=== PATIENT | male | born 1955 | race Hispanic/Latino ===

== ENCOUNTER 2020-09-30 06:53 | Observation (INO) | payer OTHER ==
[~2020-09-30] VITALS: Ht 170.2 cm; Wt 119.4 kg
[2020-09-30] MEDS ORDERED: LOSA100T58 PO (08:26)
[2020-09-30] MEDS ORDERED: AMLO-257 PO (08:26)
[2020-09-30 08:36] LABS: BASOPHILS % (AUTO) 0.9 % (0.0-5.0); EOSINOPHILS % (AUTO) 1.1 % (0.0-8.0); HEMATOCRIT 48.7 % (42-54); LYMPHOCYTES % (AUTO) 24.5 % (21.0-51.0); MEAN CORPUSCULAR HEMOGLOBIN 24.4 pg (27.0-33.0); MEAN CORPUSCULAR VOLUME 78.8 fL (79-99); MONOCYTES % (AUTO) 8.7 % (3.0-13.0); NEUTROPHILS % (AUTO) 64.2 % (40.0-77.0); PLATELET COUNT (AUTO) 301 K/uL (130-400); RED BLOOD CELL COUNT(AUTO) 6.18 MIL/uL (4.50-6.20); RED CELL DISTRIBUTION WIDTH 15.1 % (11.0-15.5); WHITE BLOOD COUNT (AUTO) 15.9 K/uL (4.8-10.8)
[2020-09-30 08:51] LABS: ALBUMIN 3.4 g/dL (3.5-5.0); BILIRUBIN,TOTAL 0.6 mg/dL (0.2-1.0); INR 1.05 (0.85-1.15); MAGNESIUM 2.1 mg/dL (1.80-2.40); POTASSIUM 4.2 mmol/L (3.5-5.1); PROTHROMBIN TIME 11.4 SEC (9.6-11.6); TOTAL PROTEIN, SERUM 7.2 g/dL (6.0-8.3)
[2020-09-30 09:11] VITALS: BP 121/90
[2020-09-30 09:30] LABS: APPEARANCE,URINE Cloudy (CLEAR); BILIRUBIN,URINE Negative (NEGATIVE); COLOR,URINE Yellow (YELLOW); GLUCOSE, URINE (UA) Negative (NEGATIVE); KETONES,URINE Negative (NEGATIVE); LEUKOCYTE ESTERASE ,URINE Trace (NEGATIVE); NITRATE,URINE Negative (NEGATIVE); OCCULT BLOOD,URINE Large (NEGATIVE); PH,URINE 6.5 (5.0-8.0); PROTEIN,URINE POS 1+ mg/dL (NEGATIVE); UROBILINOGEN,URINE 0.2 mg/dL (0.2-1.0)
[2020-09-30] MEDS ORDERED: ASPIRIN 81MG TAB.CHEW PO SCH (09:30)
[2020-09-30 09:43] LABS: BACTERIA,URINE Few /HPF (None Seen); SQUAMOUS EPITHELIAL CELL,UR 0-2 /HPF (0-2); WBC,URINE 0-1 /HPF (0-1)
[2020-09-30 09:44] LABS: HEMOGLOBIN A1C 6.8 % (4.0-6.0)
[2020-09-30] MEDS: CEFTRIAXONE SODIUM 1 GM IVP SCH ×2 (10:14→20:43)
[2020-09-30 12:00] VITALS: BP 137/91
[2020-09-30] MEDS ORDERED: ACETAMINOPHEN 325 MG TAB PO PRN ×2 (12:00)
[2020-09-30] MEDS ORDERED: ASPI-1197 PO (12:04)
[2020-09-30] MEDS ORDERED: TAMS-1 PO (12:04)
[2020-09-30 14:02] LABS: AMPHET/METH SCREEN,URINE NEGATIVE (NEGATIVE); BARBITURATE SCREEN, URINE NEGATIVE (NEGATIVE); BENZODIAZEPINES SCREEN,URINE NEGATIVE (NEGATIVE); CANNABINOID SCREEN,URINE NEGATIVE (NEGATIVE); COCAINE SCREEN,URINE NEGATIVE (NEGATIVE); OPIATE SCREEN,URINE NEGATIVE (NEGATIVE); PHENCYCLIDINE SCREEN,URINE NEGATIVE (NEGATIVE)
[2020-09-30] MEDS: DILTIAZEM HCL 120 MG CAP.SR.24H PO SCH (15:15)
[2020-09-30 16:00] VITALS: BP 145/96
[2020-09-30 19:27] VITALS: BP 118/84
[2020-09-30] MEDS: FAMOTIDINE 20MG TAB 20 MG TAB PO SCH (20:43)
[2020-09-30 23:19] VITALS: BP 123/74
[2020-10-01 04:00] VITALS: BP 123/69
[2020-10-01 06:02] LABS: BASOPHILS % (AUTO) 0.7 % (0.0-5.0); EOSINOPHILS % (AUTO) 1.9 % (0.0-8.0); HEMATOCRIT 39.5 % (42-54); LYMPHOCYTES % (AUTO) 25.8 % (21.0-51.0); MEAN CORPUSCULAR HGB CONC 32.7 g/dL (32.0-36.0); MEAN CORPUSCULAR VOLUME 76.7 fL (79-99); MONOCYTES % (AUTO) 7.5 % (3.0-13.0); NEUTROPHILS % (AUTO) 63.8 % (40.0-77.0); PLATELET COUNT (AUTO) 236 K/uL (130-400); RED BLOOD CELL COUNT(AUTO) 5.15 MIL/uL (4.50-6.20); RED CELL DISTRIBUTION WIDTH 14.6 % (11.0-15.5); WHITE BLOOD COUNT (AUTO) 10.9 K/uL (4.8-10.8)
[2020-10-01 06:24] LABS: ALBUMIN 2.8 g/dL (3.5-5.0); BILIRUBIN,TOTAL 0.4 mg/dL (0.2-1.0); CREATININE 1.1 mg/dL (0.5-1.5); MAGNESIUM 2.1 mg/dL (1.80-2.40); POTASSIUM 3.4 mmol/L (3.5-5.1); TOTAL PROTEIN, SERUM 5.9 g/dL (6.0-8.3)
[2020-10-01] MEDS: CEFTRIAXONE SODIUM 1 GM IVP SCH ×2 (07:41→20:25)
[2020-10-01] MEDS: ASPIRIN 81MG TAB.CHEW PO SCH (07:42)
[2020-10-01] MEDS: DILTIAZEM HCL 120 MG CAP.SR.24H PO SCH (07:42)
[2020-10-01] MEDS: FAMOTIDINE 20MG TAB 20 MG TAB PO SCH ×2 (07:42→20:25)
[2020-10-01] MEDS: ENOXAPARIN SODIUM 40 MG/0.4 ML SYRINGE SQ SCH (07:43)
[2020-10-01 08:00] VITALS: BP 155/92
[2020-10-01] MEDS ORDERED: POTASSIUM CHLORIDE 20 MEQ ERTAB PO SCH (08:30)
[2020-10-01] MEDS: LOSARTAN 50 MG TABLET PO SCH (10:02)
[2020-10-01 12:00] VITALS: BP 141/90
[2020-10-01 16:00] VITALS: BP 135/78
[2020-10-01 19:49] VITALS: BP 148/78
[2020-10-02] VITALS: BP 113/71
[2020-10-02 04:09] VITALS: BP 131/72
[2020-10-02 05:46] LABS: BASOPHILS % (AUTO) 0.8 % (0.0-5.0); EOSINOPHILS % (AUTO) 2.7 % (0.0-8.0); HEMATOCRIT 41.9 % (42-54); LYMPHOCYTES % (AUTO) 25.6 % (21.0-51.0); MEAN CORPUSCULAR HEMOGLOBIN 25.1 pg (27.0-33.0); MEAN CORPUSCULAR HGB CONC 32.5 g/dL (32.0-36.0); MEAN CORPUSCULAR VOLUME 77.3 fL (79-99); MONOCYTES % (AUTO) 8.9 % (3.0-13.0); NEUTROPHILS % (AUTO) 61.5 % (40.0-77.0); PLATELET COUNT (AUTO) 253 K/uL (130-400); RED BLOOD CELL COUNT(AUTO) 5.42 MIL/uL (4.50-6.20); RED CELL DISTRIBUTION WIDTH 14.6 % (11.0-15.5)
[2020-10-02 06:04] LABS: ALBUMIN 2.8 g/dL (3.5-5.0); BILIRUBIN,TOTAL 0.4 mg/dL (0.2-1.0); POTASSIUM 3.6 mmol/L (3.5-5.1)
[2020-10-02 08:11] VITALS: BP 149/92
[2020-10-02] MEDS: ASPIRIN 81MG TAB.CHEW PO SCH (08:28)
[2020-10-02] MEDS: LOSARTAN 50 MG TABLET PO SCH (08:28)
[2020-10-02] MEDS: FAMOTIDINE 20MG TAB 20 MG TAB PO SCH (08:28)
[2020-10-02] MEDS: CEFTRIAXONE SODIUM 1 GM IVP SCH (08:29)
[2020-10-02] MEDS: ENOXAPARIN SODIUM 40 MG/0.4 ML SYRINGE SQ SCH (08:29)
[2020-10-02] MEDS ORDERED: DILTIAZEM HCL 180 MG CAP.SR.24H PO SCH (09:00)
[2020-10-02] MEDS ORDERED: CEPH500B PO (11:38)
[2020-10-02 12:11] VITALS: BP 151/90
[2020-10-02] MEDS ORDERED: POTASSIUM CHLORIDE 20 MEQ ERTAB PO SCH (12:31)
== END 2020-10-02 12:30 | disposition home or self-care (01) ==
LOC: EDHIP 07:55 → 4CH 08:10
PROVIDERS: ADMIT Internal Medicine; ATTEND Internal Medicine
DX: I47.1 Supraventricular tachycardia (principal); D72.829 Elevated white blood cell count, unspecified; E11.9 Type 2 diabetes mellitus without complications; I11.9 Hypertensive heart disease without heart failure; E66.01 Morbid (severe) obesity due to excess calories; N39.0 Urinary tract infection, site not specified; N40.0 Benign prostatic hyperplasia without lower urinary tract symptoms; Z87.01 Personal history of pneumonia (recurrent); Z86.16 Personal history of COVID-19; Z96.659 Presence of unspecified artificial knee joint; Z79.82 Long term (current) use of aspirin; Z79.899 Other long term (current) drug therapy; Z68.41 Body mass index [BMI] 40.0-44.9, adult
CPT/HCPCS: 36415 ×3; 71045; 74176; 80053 ×3; 80305; 81001; 83036; 83735 ×2; 84145 ×2; 84443; 84484; 85025 ×3; 85610; 87040 ×2; 87088; 93005; 93306; 93356; 96372 ×2; 96374; 96376 ×3; G0378 ×48; G0379; J0696 ×5; J1650 ×2

== ENCOUNTER 2022-03-06 13:50 | Emergency (ER) | payer OTHER ==
[~2022-03-06] VITALS: Ht 170.2 cm; Wt 114.3 kg
[~2022-03-06 13:50] MED LIST: ASPI-1197 PO; CEPH500B PO; TAMS-1 PO
[2022-03-06 14:19] LABS: BASOPHILS % (AUTO) 0.5 % (0.0-5.0); EOSINOPHILS % (AUTO) 0.2 % (0.0-8.0); HEMATOCRIT 46.6 % (42-54); LYMPHOCYTES % (AUTO) 18.7 % (21.0-51.0); MEAN CORPUSCULAR HEMOGLOBIN 26.2 pg (27.0-33.0); MEAN CORPUSCULAR HGB CONC 33.5 g/dL (32.0-36.0); MEAN CORPUSCULAR VOLUME 78.3 fL (79-99); MONOCYTES % (AUTO) 7.6 % (3.0-13.0); NEUTROPHILS % (AUTO) 72.6 % (40.0-77.0); PLATELET COUNT (AUTO) 251 K/uL (130-400); RED BLOOD CELL COUNT(AUTO) 5.95 MIL/uL (4.50-6.20); RED CELL DISTRIBUTION WIDTH 14.6 % (11.0-15.5); WHITE BLOOD COUNT (AUTO) 15.2 K/uL (4.8-10.8)
[2022-03-06 14:28] LABS: CREATININE 1.3 mg/dL (0.5-1.5); POTASSIUM 3.1 mmol/L (3.5-5.1)
[2022-03-06 14:28] LABS: APPEARANCE,URINE CLEAR (CLEAR); BILIRUBIN,URINE SMALL (NEGATIVE); COLOR,URINE ORANGE (YELLOW); GLUCOSE, URINE (UA) NEGATIVE (NEGATIVE); KETONES,URINE 5 mg/dL (NEGATIVE); LEUKOCYTE ESTERASE ,URINE NEGATIVE (NEGATIVE); NITRATE,URINE NEGATIVE (NEGATIVE); OCCULT BLOOD,URINE NEGATIVE (NEGATIVE); PH,URINE 5.5 (5.0-8.0); PROTEIN,URINE TRACE mg/dL (NEGATIVE)
[2022-03-06 14:35] LABS: BACTERIA,URINE Few /HPF (None Seen); MUCUS,URINE Moderate LPF (None Seen); RBC,URINE None Seen /HPF (0-1); SQUAMOUS EPITHELIAL CELL,UR 0-2 /HPF (0-2); WBC,URINE 0-1 /HPF (0-1)
[2022-03-06 14:35] LABS: ALBUMIN 3.8 g/dL (3.5-5.0); MAGNESIUM 2.1 mg/dL (1.80-2.40); TOTAL PROTEIN, SERUM 7.3 g/dL (6.0-8.3)
[2022-03-06] MEDS: POTASSIUM CHLORIDE 10% ELIXIR 20 MEQ/15 ML UDCUP PO ONE ×2 (15:23→16:15)
[2022-03-06 16:00] VITALS: BP 129/72
== END 2022-03-06 17:02 | disposition home or self-care (01) ==
LOC: EDH 13:50
DX: E87.6 Hypokalemia (principal); R00.2 Palpitations; I48.91 Unspecified atrial fibrillation; I10 Essential (primary) hypertension; Z79.82 Long term (current) use of aspirin; Z90.49 Acquired absence of other specified parts of digestive tract
CPT/HCPCS: 36415; 71045; 80053; 81001; 83735; 84484; 85025; 93005

== ENCOUNTER 2022-09-05 16:00 | Observation (INO) | payer OTHER ==
[~2022-09-05] VITALS: Ht 170.2 cm; Wt 109.5 kg
[2022-09-05 20:35] VITALS: BP 155/96
[2022-09-05] MEDS ORDERED: NITROGLYCERIN 0.4 MG SL TAB SL PRN (21:00)
[2022-09-05] MEDS ORDERED: ACETAMINOPHEN 325 MG TAB PO PRN ×2 (21:00)
[2022-09-05] MEDS ORDERED: MORPHINE 2 MG SYG IV PRN (21:00)
[2022-09-05] MEDS ORDERED: ONDANSETRON 4MG INJ IV PRN (21:00)
[2022-09-05] MEDS ORDERED: MORPHINE 4 MG SYG IV PRN (21:00)
[2022-09-05 21:23] LABS: EOSINOPHILS % (AUTO) 1.7 % (0.0-8.0); HEMATOCRIT 49.6 % (42-54); LYMPHOCYTES % (AUTO) 26.8 % (21.0-51.0); MEAN CORPUSCULAR HGB CONC 31.9 g/dL (32.0-36.0); MEAN CORPUSCULAR VOLUME 81.6 fL (79-99); MONOCYTES % (AUTO) 9.2 % (3.0-13.0); PLATELET COUNT (AUTO) 291 K/uL (130-400); RED BLOOD CELL COUNT(AUTO) 6.08 MIL/uL (4.50-6.20); RED CELL DISTRIBUTION WIDTH 13.6 % (11.0-15.5); WHITE BLOOD COUNT (AUTO) 13.5 K/uL (4.8-10.8)
[2022-09-05] MEDS ORDERED: [UNRECOGNIZED DRUG - OTHER] MISC SCH (21:30)
[2022-09-05 21:39] LABS: INR 1.05 (0.85-1.15); PROTHROMBIN TIME 11.4 SEC (9.6-11.6)
[2022-09-05 21:41] LABS: PARTIAL THROMBOPLASTIN TIME 26.3 SEC (26.3-35.5)
[2022-09-05 21:44] LABS: ALBUMIN 3.6 g/dL (3.5-5.0); CREATININE 1.1 mg/dL (0.5-1.5); MAGNESIUM 2.4 mg/dL (1.80-2.40); POTASSIUM 3.4 mmol/L (3.5-5.1); TOTAL PROTEIN, SERUM 7.4 g/dL (6.0-8.3)
[2022-09-05] MEDS ORDERED: VERA120T20 PO (22:42)
[2022-09-05] MEDS ORDERED: LOSA50TA64 PO (22:44)
[2022-09-05] MEDS ORDERED: POTA-200 PO (22:44)
[2022-09-05] MEDS ORDERED: METOPROLOL TARTRATE 1 MG/ML 5ML VIAL IV PRN (23:00)
[2022-09-06 00:11] VITALS: BP 119/61
[2022-09-06 03:40] LABS: BASOPHILS % (AUTO) 0.7 % (0.0-5.0); EOSINOPHILS % (AUTO) 2.5 % (0.0-8.0); HEMATOCRIT 42.1 % (42-54); LYMPHOCYTES % (AUTO) 25.5 % (21.0-51.0); MEAN CORPUSCULAR HEMOGLOBIN 25.7 pg (27.0-33.0); MEAN CORPUSCULAR HGB CONC 32.5 g/dL (32.0-36.0); MEAN CORPUSCULAR VOLUME 78.8 fL (79-99); NEUTROPHILS % (AUTO) 59.9 % (40.0-77.0); PLATELET COUNT (AUTO) 260 K/uL (130-400); RED BLOOD CELL COUNT(AUTO) 5.34 MIL/uL (4.50-6.20); RED CELL DISTRIBUTION WIDTH 13.5 % (11.0-15.5); WHITE BLOOD COUNT (AUTO) 12.1 K/uL (4.8-10.8)
[2022-09-06 03:47] LABS: CREATININE 1.1 mg/dL (0.5-1.5); POTASSIUM 3.2 mmol/L (3.5-5.1)
[2022-09-06 04:03] VITALS: BP 113/60
[2022-09-06 07:02] VITALS: BP 124/86
[2022-09-06] MEDS ORDERED: POTASSIUM CHLORIDE 20MEQ/100ML 100 ML IV PRN (08:30)
[2022-09-06] MEDS ORDERED: KCL 20 MEQ ERTAB PO PRN (08:30)
[2022-09-06] MEDS ORDERED: POTASSIUM CHLORIDE 10% ELIXIR 20 MEQ/15 ML UDCUP PO PRN (08:30)
[2022-09-06] MEDS ORDERED: LIDOCAINE HCL-MPF 1% 2ML VIAL IV PRN (08:30)
[2022-09-06] MEDS ORDERED: MAGNESIUM 2GM PREMIX 50ML 50 ML IV PRN (08:30)
[2022-09-06] MEDS ORDERED: VERAPAMIL HCL 240 MG SRTAB PO SCH ×2 (09:00→21:00)
[2022-09-06] MEDS ORDERED: POTASSIUM CHLORIDE 10MEQ SR TAB PO SCH (09:00)
[2022-09-06] MEDS ORDERED: FAMOTIDINE 20MG VIAL IV SCH (09:00)
[2022-09-06] MEDS ORDERED: ENOXAPARIN SODIUM 40 MG/0.4 ML SYRINGE SQ SCH (09:00)
[2022-09-06] MEDS ORDERED: TAMSULOSIN HCL 0.4 MG CAP.ER.24H PO SCH (09:00)
[2022-09-06] MEDS ORDERED: LOSARTAN 50 MG TABLET PO SCH (09:00)
[2022-09-06] MEDS ORDERED: VERA180T61 PO (09:36)
[2022-09-06 12:00] VITALS: BP 140/76
== END 2022-09-06 14:35 | disposition home or self-care (01) ==
LOC: 2DH 20:42 → INTOOBSV 20:42
PROVIDERS: ADMIT Internal Medicine; ATTEND Internal Medicine
DX: I48.91 Unspecified atrial fibrillation (principal); I10 Essential (primary) hypertension; E66.9 Obesity, unspecified; I47.1 Supraventricular tachycardia; Z79.82 Long term (current) use of aspirin; Z79.899 Other long term (current) drug therapy; Z96.652 Presence of left artificial knee joint; Z51.5 Encounter for palliative care
CPT/HCPCS: 83735; 84100; 84484; 80053; 85025 ×2; 85610; 85730; 87040 ×2; 83605; 36415 ×2; 71045; 84145; 96374; 96372; 80048; G0378 ×2; J3490; J1650

== ENCOUNTER 2022-12-22 06:32 | Day surgery (SDC) | payer OTHER ==
[2022-12-20 08:48] LABS: BASOPHILS % (AUTO) 0.7 % (0.0-5.0); HEMATOCRIT 44.9 % (42-54); MEAN CORPUSCULAR HGB CONC 32.5 g/dL (32.0-36.0); MONOCYTES % (AUTO) 7.6 % (3.0-13.0); NEUTROPHILS % (AUTO) 70.4 % (40.0-77.0); PLATELET COUNT (AUTO) 263 K/uL (130-400); RED BLOOD CELL COUNT(AUTO) 5.61 MIL/uL (4.50-6.20); RED CELL DISTRIBUTION WIDTH 14.3 % (11.0-15.5); WHITE BLOOD COUNT (AUTO) 11.8 K/uL (4.8-10.8)
[2022-12-20 08:56] LABS: POTASSIUM 3.5 mmol/L (3.5-5.1)
[2022-12-20 09:03] LABS: INR 1.03 (0.85-1.15); PROTHROMBIN TIME 11.2 SEC (9.6-11.6)
[2022-12-20 09:04] LABS: PARTIAL THROMBOPLASTIN TIME 26.6 SEC (26.3-35.5)
[2022-12-20 09:25] VITALS: BP 184/99
[~2022-12-22] VITALS: Ht 170.2 cm; Wt 111.6 kg
[2022-12-22] VITALS (8 sets, daily range): BP systolic 116–165; BP diastolic 80–92
[~2022-12-22 06:32] MED LIST changes: -ASPI-1197 PO; -CEPH500B PO; +LOSA100T59 PO; +POTA-202 PO; +VERA180T61 PO
[2022-12-22 07:16] LABS: BASOPHILS % (AUTO) 0.9 % (0.0-5.0); EOSINOPHILS % (AUTO) 1.7 % (0.0-8.0); HEMATOCRIT 45.6 % (42-54); LYMPHOCYTES % (AUTO) 22.3 % (21.0-51.0); MEAN CORPUSCULAR HEMOGLOBIN 25.6 pg (27.0-33.0); MEAN CORPUSCULAR HGB CONC 32.5 g/dL (32.0-36.0); MEAN CORPUSCULAR VOLUME 78.9 fL (79-99); NEUTROPHILS % (AUTO) 66.8 % (40.0-77.0); PLATELET COUNT (AUTO) 260 K/uL (130-400); RED BLOOD CELL COUNT(AUTO) 5.78 MIL/uL (4.50-6.20); RED CELL DISTRIBUTION WIDTH 14.3 % (11.0-15.5); WHITE BLOOD COUNT (AUTO) 10.6 K/uL (4.8-10.8)
[2022-12-22] MEDS ORDERED: 0.9%NACL 1000ML 1,000 ML IV ONE (07:32)
[2022-12-22] MEDS ORDERED: LIDOCAINE HCL 1% MDV 50ML VIAL ONE (08:40)
[2022-12-22] MEDS ORDERED: HEPARIN 10,000 UNIT/10ML (1,000 UNIT/ML) VIAL ONE (08:40)
[2022-12-22] MEDS ORDERED: MIDAZOLAM HCL 1 MG/ML 2ML VIAL ONE ×2 (08:41→09:45)
[2022-12-22] MEDS ORDERED: MEPERIDINE-PF 25 MG/ML SYG ONE ×2 (08:41→09:45)
[2022-12-22] MEDS ORDERED: ISOPROTERENOL HCL 0.2 MG/ML AMP/VIAL/BAG ONE ×3 (09:48→12:12)
[2022-12-22] MEDS ORDERED: VERAPAMIL HCL 2.5 MG/ML VIAL ONE (12:41)
== END 2022-12-22 16:03 | disposition home or self-care (01) ==
LOC: DAH 06:32
PROVIDERS: ATTEND Internal Medicine Cardiovascular Disease
DX: I47.1 Supraventricular tachycardia (principal); I49.1 Atrial premature depolarization; I10 Essential (primary) hypertension; I44.0 Atrioventricular block, first degree; E66.9 Obesity, unspecified; I11.9 Hypertensive heart disease without heart failure; Z86.16 Personal history of COVID-19; Z98.890 Other specified postprocedural states; Z82.49 Family history of ischemic heart disease and other diseases of the circulatory system; Z79.01 Long term (current) use of anticoagulants; Z79.899 Other long term (current) drug therapy; Z68.38 Body mass index [BMI] 38.0-38.9, adult
CPT/HCPCS: 80048; 85025 ×2; 85610; 85730; 36415 ×2; 93005 ×2; 93653; 93623; C1894 ×5; C1732 ×2; C1730 ×3; A4649 ×2; J7030; J3490 ×5; J1644 ×2; J2250 ×2; J2175 ×2; A4215; A4222; A4221; A4663; A4216; A4606; A4223 ×3; 99156; 99157

== ENCOUNTER 2023-05-14 09:26 | Inpatient (IN) | payer OTHER ==
[~2023-05-14] VITALS: Ht 170.2 cm; Wt 112.3 kg
[~2023-05-14 09:26] MED LIST changes: -VERA180T61 PO
[2023-05-14 09:43] LABS: BASOPHILS # (AUTO) 0.09 K/uL (0.00-0.20); BASOPHILS % (AUTO) 0.5 % (0.0-5.0); EOSINOPHILS # (AUTO) 0.07 K/uL (0.00-0.70); EOSINOPHILS % (AUTO) 0.4 % (0.0-8.0); HEMATOCRIT 45.1 % (42-54); IMMATURE GRANULOCYTE ABSOLUTE 0.07 K/uL (0-1); LYMPHOCYTES % (AUTO) 10.4 % (21.0-51.0); MEAN CORPUSCULAR HEMOGLOBIN 26.9 pg (27.0-33.0); MEAN CORPUSCULAR HGB CONC 34.1 g/dL (32.0-36.0); MEAN CORPUSCULAR VOLUME 78.8 fL (79-99); MONOCYTES # (AUTO) 1.3 K/uL (0.1-1.0); MONOCYTES % (AUTO) 6.6 % (3.0-13.0); NEUTROPHILS # (AUTO) 15.5 K/uL (1.8-7.7); NEUTROPHILS % (AUTO) 81.7 % (40.0-77.0); PLATELET COUNT (AUTO) 250 K/uL (130-400); RED BLOOD CELL COUNT(AUTO) 5.72 MIL/uL (4.50-6.20); RED CELL DISTRIBUTION WIDTH 13.7 % (11.0-15.5)
[2023-05-14 09:55] LABS: ALBUMIN 3.4 g/dL (3.5-5.0); BILIRUBIN,TOTAL 1.2 mg/dL (0.2-1.0); CREATININE 1.1 mg/dL (0.5-1.5); MAGNESIUM 1.8 mg/dL (1.80-2.40); POTASSIUM 3.1 mmol/L (3.5-5.1); TOTAL PROTEIN, SERUM 7.1 g/dL (6.0-8.3)
[2023-05-14 10:21] LABS: APPEARANCE,URINE CLEAR (CLEAR); BILIRUBIN,URINE NEGATIVE (NEGATIVE); COLOR,URINE YELLOW (YELLOW); GLUCOSE, URINE (UA) NEGATIVE (NEGATIVE); KETONES,URINE NEGATIVE (NEGATIVE); LEUKOCYTE ESTERASE ,URINE NEGATIVE Leu/uL (NEGATIVE); NITRATE,URINE NEGATIVE (NEGATIVE); PROTEIN,URINE 20 mg/dL (NEGATIVE); UROBILINOGEN,URINE 0.2 mg/dL (0.2-1.0)
[2023-05-14 10:23] LABS: ADD UA MICROSCOPIC YES
[2023-05-14 10:24] LABS: BACTERIA,URINE RARE /HPF (None Seen); MUCUS,URINE RARE LPF (None Seen); WBC,URINE 0-1 /HPF (0-1)
[2023-05-14 11:29] LABS: RAPID GROUP A STREP negative (NEGATIVE); SARS-CoV-2, RNA, NAAT NEGATIVE SARS CoV-2 (NEGATIVE)
[2023-05-14 11:35] LABS: INFLUENZA TYPE A Negative For Type A (NEGATIVE); INFLUENZA TYPE B Negative For Type B (NEGATIVE)
[2023-05-14] MEDS ORDERED: ASPI-1197 PO (14:33)
[2023-05-14] MEDS ORDERED: AMLO-257 PO (14:33)
[2023-05-14] MEDS ORDERED: KETOROLAC 15MG/ML VIAL (15MG/ML) IV ONE (15:30)
[2023-05-14] MEDS ORDERED: ACETAMINOPHEN 500 MG TABLET PO PRN (15:30)
[2023-05-14] MEDS ORDERED: 0.9%NACL 1000ML 500 ML IV ONE (15:30)
[2023-05-14] MEDS ORDERED: MAGNESIUM 2GM PREMIX 50ML 50 ML IV PRN (15:30)
[2023-05-14] MEDS ORDERED: KCL 20 MEQ ERTAB PO ONE (15:30)
[2023-05-14] MEDS: CEFTRIAXONE 2GM VIAL IVPB SCH (15:32)
[2023-05-14 16:53] LABS: THYROID STIMULATING HORMONE 1.44 uIU/mL (0.36-3.74)
[2023-05-14 17:08] LABS: AMPHET/METH SCREEN,URINE NEGATIVE (NEGATIVE); BARBITURATE SCREEN, URINE NEGATIVE (NEGATIVE); BENZODIAZEPINES SCREEN,URINE NEGATIVE (NEGATIVE); CANNABINOID SCREEN,URINE NEGATIVE (NEGATIVE); COCAINE SCREEN,URINE NEGATIVE (NEGATIVE); OPIATE SCREEN,URINE NEGATIVE (NEGATIVE); PHENCYCLIDINE SCREEN,URINE NEGATIVE (NEGATIVE)
[2023-05-14 17:19] VITALS: BP 143/75; PULSE 83; RESP 18
[2023-05-14 18:59] VITALS: O2SAT 98
[2023-05-14 19:00] VITALS: BP 142/89; PULSE 76; RESP 20
[2023-05-14] MEDS: FAMOTIDINE 20MG VIAL IV SCH (21:07)
[2023-05-14 23:00] VITALS: BP 126/68; PULSE 76; RESP 20
[2023-05-15] VITALS (7 sets, daily range): BP systolic 129–158; BP diastolic 86–90; PULSE 67–82; RESP 18–20; O2SAT 97
[2023-05-15 05:27] LABS: BASOPHILS # (AUTO) 0.07 K/uL (0.00-0.20); BASOPHILS % (AUTO) 0.7 % (0.0-5.0); EOSINOPHILS # (AUTO) 0.31 K/uL (0.00-0.70); HEMATOCRIT 40.3 % (42-54); IMMATURE GRANULOCYTE ABSOLUTE 0.05 K/uL (0-1); LYMPHOCYTES # (AUTO) 2.3 K/uL (1.0-4.8); LYMPHOCYTES % (AUTO) 22.5 % (21.0-51.0); MEAN CORPUSCULAR HEMOGLOBIN 26.6 pg (27.0-33.0); MEAN CORPUSCULAR HGB CONC 33.3 g/dL (32.0-36.0); MEAN CORPUSCULAR VOLUME 80.1 fL (79-99); MONOCYTES # (AUTO) 0.9 K/uL (0.1-1.0); MONOCYTES % (AUTO) 9.1 % (3.0-13.0); NEUTROPHILS # (AUTO) 6.6 K/uL (1.8-7.7); NEUTROPHILS % (AUTO) 64.2 % (40.0-77.0); PLATELET COUNT (AUTO) 220 K/uL (130-400); RED BLOOD CELL COUNT(AUTO) 5.03 MIL/uL (4.50-6.20); RED CELL DISTRIBUTION WIDTH 13.8 % (11.0-15.5); WHITE BLOOD COUNT (AUTO) 10.2 K/uL (4.8-10.8)
[2023-05-15 05:36] LABS: POTASSIUM 3.3 mmol/L (3.5-5.1)
[2023-05-15] MEDS ORDERED: POTASSIUM CHLORIDE 20MEQ/100ML 100 ML IV PRN (06:30)
[2023-05-15] MEDS ORDERED: POTASSIUM CHLORIDE 10% ELIXIR 20 MEQ/15 ML UDCUP PO PRN (06:30)
[2023-05-15] MEDS: KCL 20 MEQ ERTAB PO PRN ×3 (06:45→15:05)
[2023-05-15] MEDS: ASPIRIN 81MG CHEW TAB PO SCH (09:48)
[2023-05-15] MEDS: TAMSULOSIN HCL 0.4 MG CAP.ER.24H PO SCH (09:48)
[2023-05-15] MEDS: LOSARTAN 100 MG TABLET PO SCH (09:48)
[2023-05-15] MEDS: AMLODIPINE 5 MG TAB PO SCH (09:48)
[2023-05-15] MEDS: FAMOTIDINE 20MG VIAL IV SCH ×2 (09:48→19:33)
[2023-05-15] MEDS: ENOXAPARIN SODIUM 40 MG/0.4 ML SYRINGE SQ SCH (09:49)
[2023-05-15] MEDS ORDERED: MORPHINE 2 MG SYG IVP ONE (13:30)
[2023-05-15] MEDS: CEFTRIAXONE 2GM VIAL IVPB SCH (15:04)
[2023-05-16] VITALS: BP 127/76; PULSE 67; RESP 20
[2023-05-16 04:00] VITALS: BP 136/87; PULSE 72; RESP 19
[2023-05-16 05:42] LABS: BASOPHILS # (AUTO) 0.09 K/uL (0.00-0.20); BASOPHILS % (AUTO) 0.8 % (0.0-5.0); EOSINOPHILS # (AUTO) 0.47 K/uL (0.00-0.70); EOSINOPHILS % (AUTO) 4.2 % (0.0-8.0); HEMATOCRIT 42.9 % (42-54); IMMATURE GRANULOCYTE ABSOLUTE 0.03 K/uL (0-1); LYMPHOCYTES # (AUTO) 2.3 K/uL (1.0-4.8); LYMPHOCYTES % (AUTO) 20.2 % (21.0-51.0); MEAN CORPUSCULAR HEMOGLOBIN 26.5 pg (27.0-33.0); MEAN CORPUSCULAR HGB CONC 33.3 g/dL (32.0-36.0); MEAN CORPUSCULAR VOLUME 79.4 fL (79-99); MONOCYTES % (AUTO) 9.1 % (3.0-13.0); NEUTROPHILS # (AUTO) 7.3 K/uL (1.8-7.7); NEUTROPHILS % (AUTO) 65.4 % (40.0-77.0); PLATELET COUNT (AUTO) 245 K/uL (130-400); WHITE BLOOD COUNT (AUTO) 11.2 K/uL (4.8-10.8)
[2023-05-16 06:01] LABS: BILIRUBIN,TOTAL 0.6 mg/dL (0.2-1.0); POTASSIUM 3.6 mmol/L (3.5-5.1); TOTAL PROTEIN, SERUM 6.8 g/dL (6.0-8.3)
[2023-05-16] MEDS: KCL 20 MEQ ERTAB PO PRN ×2 (06:09→09:14)
[2023-05-16 07:50] VITALS: O2SAT 97
[2023-05-16 08:00] VITALS: BP 161/91; PULSE 75; RESP 20
[2023-05-16] MEDS: TAMSULOSIN HCL 0.4 MG CAP.ER.24H PO SCH (09:13)
[2023-05-16] MEDS: AMLODIPINE 5 MG TAB PO SCH (09:13)
[2023-05-16] MEDS: ASPIRIN 81MG CHEW TAB PO SCH (09:13)
[2023-05-16] MEDS: LOSARTAN 100 MG TABLET PO SCH (09:13)
[2023-05-16] MEDS: FAMOTIDINE 20MG VIAL IV SCH (09:13)
[2023-05-16] MEDS: ENOXAPARIN SODIUM 40 MG/0.4 ML SYRINGE SQ SCH (09:14)
[2023-05-16 12:00] VITALS: BP 131/79; PULSE 75; RESP 18
[2023-05-16] MEDS ORDERED: GABA-529 PO (12:44)
== END 2023-05-16 15:05 | disposition home or self-care (01) | DRG 603 ==
LOC: EDH 09:26 → EDHIP 15:09 → 4DH 16:45
PROVIDERS: ADMIT Internal Medicine; ATTEND Internal Medicine
DX: L03.113 Cellulitis of right upper limb (principal); L03.115 Cellulitis of right lower limb; E87.6 Hypokalemia; R00.2 Palpitations; I10 Essential (primary) hypertension; N40.0 Benign prostatic hyperplasia without lower urinary tract symptoms; Z20.822 Contact with and (suspected) exposure to COVID-19; G44.209 Tension-type headache, unspecified, not intractable; I48.91 Unspecified atrial fibrillation; E66.9 Obesity, unspecified; Z68.38 Body mass index [BMI] 38.0-38.9, adult
CPT/HCPCS: 36415; 70450; 71045; 80048; 80053; 80305; 81001; 82550; 83605; 83735; 84145; 84443; 84484; 85025; 86140; 87040; 87635; 87804; 87880; 93005; 93306; 93970; 96365; 96375; C9803; G0378; J0696; J1650; J1885; J2270; J3490; J7030

== ENCOUNTER 2023-05-19 15:08 | Emergency (ER) | payer OTHER ==
[~2023-05-19] VITALS: Ht 170.2 cm; Wt 109.8 kg
[~2023-05-19 15:08] MED LIST changes: +AMLO-257 PO; +ASPI-1197 PO; +GABA-529 PO
[2023-05-19 16:01] LABS: HEMATOCRIT 43.3 % (42-54); MEAN CORPUSCULAR HEMOGLOBIN 26.3 pg (27.0-33.0); MEAN CORPUSCULAR HGB CONC 33.3 g/dL (32.0-36.0); MEAN CORPUSCULAR VOLUME 79.2 fL (79-99); RED BLOOD CELL COUNT(AUTO) 5.47 MIL/uL (4.50-6.20); RED CELL DISTRIBUTION WIDTH 13.7 % (11.0-15.5); WHITE BLOOD COUNT (AUTO) 10.6 K/uL (4.8-10.8)
[2023-05-19 16:30] LABS: POTASSIUM 4.3 mmol/L (3.5-5.1)
[2023-05-19 18:03] LABS: APPEARANCE,URINE CLEAR (CLEAR); BILIRUBIN,URINE NEGATIVE (NEGATIVE); COLOR,URINE LIGHT-YELLOW (YELLOW); GLUCOSE, URINE (UA) NEGATIVE (NEGATIVE); KETONES,URINE NEGATIVE (NEGATIVE); LEUKOCYTE ESTERASE ,URINE NEGATIVE Leu/uL (NEGATIVE); NITRATE,URINE NEGATIVE (NEGATIVE); PROTEIN,URINE 10 mg/dL (NEGATIVE); UROBILINOGEN,URINE 0.2 mg/dL (0.2-1.0)
[2023-05-19 18:09] LABS: ADD UA MICROSCOPIC YES
[2023-05-19 18:11] LABS: MUCUS,URINE RARE LPF (None Seen); SQUAMOUS EPITHELIAL CELL,UR RARE /HPF (0-2); WBC,URINE 0-1 /HPF (0-1)
[2023-05-19 18:36] VITALS: BP 146/87; PULSE 74; RESP 18; O2SAT 99
== END 2023-05-19 18:36 | disposition home or self-care (01) ==
LOC: EDH 15:08
DX: R00.2 Palpitations (principal); I10 Essential (primary) hypertension; I48.91 Unspecified atrial fibrillation; Z90.49 Acquired absence of other specified parts of digestive tract; Z90.89 Acquired absence of other organs; Z79.82 Long term (current) use of aspirin; Z79.84 Long term (current) use of oral hypoglycemic drugs; Z79.899 Other long term (current) drug therapy; Z98.890 Other specified postprocedural states
CPT/HCPCS: 36415; 80048; 81001; 83735; 84443; 84484; 85027; 93005